=== PATIENT | female | born 1970 | race Caucasian/White ===

== ENCOUNTER 2020-03-29 06:44 | Day surgery (SDC) | payer MEDICAID, SELFPAY ==
[2020-03-29 07:05] VITALS: BP 190/115; PULSE 82; RESP 18; TEMP 36.3; O2SAT 97
--- NOTE | 2020-03-29 07:10 | P.ANESASSM_ITS ---
Pre-Anesthetic Assessment Pre-Anesthetic Assessment: Height/Weight: Height 1.63 m Weight 121.109 kg Temp Pulse Resp BP Pulse Ox 97.4 F L 82 18 190/115 97 03/29/20 07:05 03/29/20 07:05 03/29/20 07:05 03/29/20 07:05 03/29/20 07:05 Preop Diagnosis: Chronic GERD and screening colonoscopy Proposed Procedure: Operation Date: 03/29/20 07:30 Proposed Procedures p EGD 85489 K21.9(Not Applicable) - Alfredito Hawk MD s Colonoscopy 49595 Z12.11(Not Applicable) - Alfredito Hawk MD Was Beta Huber taken within 24 hours: N/A Last intake: Intake Last Liquid Date 03/28/20 Last Liquid Time 22:00 Last Solid Date 03/27/20 Social: Social History: No alcohol and No tobacco Exam: Pre-Anes Outpt Exam: alert, oriented x 3, clear to auscultation bilaterally and regular rate & rhythm Airway: Submandibular: WNL Cervical ROM: WNL MP: 2 Dentition: Full History/ROS: No significant history except as noted and No significant complaints Pulmonary: Pulmonary: Sleep apnea (cpap) CV/HEM: CV/HEM: Angina (Stable) (anxiety related, stress negative 2 yr ago) and HTN : : None reported Hepatic: Hepatic: None reported GI: GI: GERD Metabolic: Metabolic: Morbid obesity and Thyroid Musc/skel: Musc/skel: Fibromyalgia and OA/DJD Neuropsych: Neuropsych: Anxiety Anesthetic Plan: ASA status: 3 Anesthesia: General and MAC PFSH Anesthesia PFSH: Medical History (Updated 03/23/20 @ 12:45 by Alfredito Hawk MD) Allergy to alpha-gal Depression Hyperlipidemia Hypertension Obesity Surgical History History of colonoscopy History of hysterectomy History of laparoscopic cholecystectomy History of tonsillectomy Family History Denies family history of Anesthesia complication Bleeding disorder Social History Smoking and tobacco status: never smoked Second hand smoke exposure: No Alcohol intake: never Adopted: No Caregiver/support person: Yes Lives independently: Yes Household members: spouse Housing: House Marital status: service: No Current occupational status: retired Current occupational exposures/hazards: No Pets and animals: No History of recent travel: No Sexually active: No Current gender identity: Female Ary/Mormonism: Rastafarian Special ary needs: No Agree to transfusion: No Financial difficulty paying for basics: Decline to Answer Data Anesthesia Cardiac Studies: No Data to Display
[2020-03-29] MEDS: sodium chloride 0.9% 1,000 ML 30 ML IV (07:11)
--- NOTE | 2020-03-29 07:17 | W.PM.OPSUD ---
Surgery/Procedure H&P Update DATE OF PROCEDURE: March 29, 2020 DATE H&P PERFORMED: 01/20/20 H&P UPDATE INFORMATION: I have reviewed H&P completed within last 30 days, I have examined patient prior to procedure and Changes to prior documentation as noted here (Patient reported that she did not have a colonoscopy back in 1994 but was a barium enema) PREOP DIAGNOSIS: Chronic GERD and screening colonoscopy PRIMARY INDICATION FOR PROCEDURE: The same PLANNED PROCEDURE: Operation Date: 03/29/20 07:30 Proposed Procedures p EGD 81232 K21.9(Not Applicable) - Alfredito Hawk MD s Colonoscopy 67014 Z12.11(Not Applicable) - Alfredito Hawk MD
[2020-03-29 07:50] VITALS: BP 143/98; PULSE 75; RESP 16; TEMP 36.5; O2SAT 98
--- NOTE | 2020-03-29 08:03 | W.PM.OPSFHP ---
Same Day Surgery H&P Indication for Procedure/HPI DATE OF PROCEDURE: March 29, 2020 CHIEF COMPLAINT/INDICATIONFOR SURGICAL PROCEDURE: Obesity PREOP DIAGNOSIS: Chronic GERD and screening colonoscopy PLANNED PROCEDRUE: Operation Date: 03/29/20 07:30 Proposed Procedures p EGD 25441 K21.9(Not Applicable) - Alfredito Hawk MD s Colonoscopy 88302 Z12.11(Not Applicable) - Alfredito Hawk MD This is a pleasant 49 years old female patient morbidly obese with associated multiple medical comorbidities including alpha gal allergy, hypertension, bilateral knee pain, hypothyroidism, questionable history of hiatal hernia,elevated liver function tests and an anxiety. Patient comes today as she is concerned about her morbid obesity which is interfering with her daily life activities and she is referred for further evaluation and potential discussion of different obesity management options including Bariatric surgery. Patient also have chronic GERD and she is also due for screening colonoscopy. She reports today that she had an antibiotic test for H. pylori that was tested positive and was placed on triple therapy ROS All systems have been reviewed negative except as for the above or per problem list Medications/Allergies* Home Medications Medication Instructions Recorded Confirmed Type buspirone 5 mg tablet 5 mg PO TID 01/20/20 03/29/20 History cyclobenzaprine 10 mg tablet 10 mg PO BID tab 01/20/20 03/29/20 History diphenhydramine HCl 25 mg capsule 25 mg PO TID PRN 01/20/20 03/29/20 History gabapentin 300 mg capsule 300 mg PO DAILY 01/20/20 03/29/20 History levothyroxine 50 mcg capsule 50 mcg PO DAILY 01/20/20 03/29/20 History losartan 50 mg tablet 50 mg PO DAILY 01/20/20 03/29/20 History meclizine 25 mg tablet 25 mg PO TID PRN MDD 3 01/20/20 03/29/20 History montelukast 10 mg tablet 10 mg PO DAILY 01/20/20 03/29/20 History nitroglycerin 0.4 mg sublingual 0.4 mg SUBLINGUAL Q5M PRN 01/20/20 03/29/20 History tablet spironolactone 25 mg tablet 25 mg PO DAILY 01/20/20 03/29/20 History Allergies/Adverse Reactions Allergy/AdvReac Type Severity Reaction Status Date / Time alpha-gal Allergy ALGY-Anaphy Uncoded 03/29/20 08:05 laxis Current Medications: Generic Name Dose Route Start Last Admin Trade Name Bruce PRN Reason Stop Dose Admin Sodium Chloride 1,000 mls @ 30 mls/hr 03/29/20 07:00 03/29/20 07:11 Sodium Chloride 0.9% IV 30 mls/hr .Q24H YAKELIN Administration Pertinent History/Comorbid Conditions* Medical History (Updated 03/29/20 @ 07:48 by Alfredito Hawk MD) Allergy to alpha-gal Depression Hyperlipidemia Hypertension Obesity Surgical History (Updated 01/20/20 @ 16:28 by Alfredito Hawk MD) History of colonoscopy History of hysterectomy History of laparoscopic cholecystectomy History of tonsillectomy Family History (Updated 01/20/20 @ 11:34 by Courtney Matta RN) Denies family history of Anesthesia complication Bleeding disorder Social History Smoking and tobacco status: never smoked Second hand smoke exposure: No Alcohol intake: never Adopted: No Caregiver/support person: Yes Lives independently: Yes Household members: spouse Housing: House Marital status: service: No Current occupational status: retired Current occupational exposures/hazards: No Pets and animals: No History of recent travel: No Sexually active: No Current gender identity: Female Ary/Episcopal: Nondenominational Special ary needs: No Agree to transfusion: No Financial difficulty paying for basics: Decline to Answer Pertinent Exam Findings alert, oriented x 3, clear to auscultation bilaterally, regular rate & rhythm and procedure specific exam findings (Abdominal examination nontender nondistended soft/morbidly obese) Recommendations Surgery/Procedure today (EGD and colonoscopy/informed consent per chart) Coding Level of Care Code Acute Office Lead for Tabitha Reid
[2020-03-29 08:06] VITALS: BP 130/81; PULSE 65; RESP 16; O2SAT 95
[2020-03-29 08:11] VITALS: BP 144/95; PULSE 69; RESP 16; O2SAT 97
--- NOTE | 2020-03-29 08:38 | ANE.PACU2 ---
Inpatient post-anesthesia follow up: Airway intact: Yes Vital signs: Temperature 97.7 F Pulse Rate 69 Respiratory Rate 16 Blood Pressure 144/95 Pulse Oximetry 97 Oxygen Delivery Me thod Room Air Oxygen Flow Rate Fraction of Inspir ed Oxygen Hydration adequate: Yes Nausea and vomiting: No Mental status: Baseline
[2020-03-31 10:32] LABS: H. Pylori / CLO Test Negative
== END 2020-03-29 08:20 | disposition home or self-care (01) ==
PROVIDERS: PCP Registered Nurse; Visit Provider Surgery
PROC: 0DJ08ZZ Inspection of Upper Intestinal Tract, Via Natural or Artificial Opening Endoscopic (ICD-10-PCS; CPT 43235; principal; 2020-03-29 07:30)
PROC: 0DJD8ZZ Inspection of Lower Intestinal Tract, Via Natural or Artificial Opening Endoscopic (ICD-10-PCS; CPT 45378; 2020-03-29 07:30)
DX: Z12.11 Encounter for screening for malignant neoplasm of colon (principal); K21.9 Gastro-esophageal reflux disease without esophagitis; D12.2 Benign neoplasm of ascending colon; E66.01 Morbid (severe) obesity due to excess calories; Z68.42 Body mass index [BMI] 45.0-49.9, adult; K29.70 Gastritis, unspecified, without bleeding; G47.30 Sleep apnea, unspecified; M79.7 Fibromyalgia; M19.90 Unspecified osteoarthritis, unspecified site; F41.9 Anxiety disorder, unspecified; E78.5 Hyperlipidemia, unspecified
CPT/HCPCS: 12345; 43239; 45385; 87077; J2704; J3490; J7030

== ENCOUNTER 2021-03-05 23:03 | Emergency (ER) | payer MEDICAID, SELFPAY ==
[2021-03-05 23:19] VITALS: BP 89/57; PULSE 65; RESP 15; TEMP 36.3; O2SAT 96; BMI 43.6
--- NOTE | 2021-03-05 23:30 | XRR_ITS ---
PROCEDURE INFORMATION: Exam: XR Chest Exam date and time: 03/05/2021 11:51 PM Age: 50 years old Clinical indication: Other: Low blood pressure; Additional info: Dizzy, low blood pressure TECHNIQUE: Imaging protocol: XR of the chest. Views: 1 view. COMPARISON: CR Chest 1 [place] [id number] 08/28/2014 7:53 PM FINDINGS: Lungs: Visualized portions of the lungs are clear. Pleural spaces: Unremarkable. No pleural effusion. No pneumothorax. Heart/Mediastinum: Heart is within normal limits of size. Bones/joints: Unremarkable. XR/XR chest 1V portable [id number] IMPRESSION: No acute infiltrates.
--- NOTE | 2021-03-05 23:30 | ECG_ITS ---
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 Measurements Intervals [place]on Rate: 60 P: 29 NV: 173 QRS: 23 QRSD: 107 T: 2 QT: 459 QTc: 459 Interpretive Statements SINUS RHYTHM LOW QRS VOLTAGE IN PRECORDIAL LEADS [QRS DEFLECTION < 1.0 mV IN CHEST LEADS] No previous ECG available for comparison Electronically Signed On 03-06-2021 19:21:16 CDT by Harish Jeff M.D. [email or web address]
--- NOTE | 2021-03-05 23:34 | ED_ITS ---
HPI - Dizziness General: Chief Complaint: Dizziness Stated Complaint: LOW BP ISSUES Time Seen by Provider: 03/05/21 23:29 Source: patient Mode of arrival: ambulatory Limitations: no limitations History of Present Illness: HPI Narrative: 50-year-old female who states that tonight roughly 1 to 2 hours ago she started to feel lightheaded and felt she may pass out. She states she took her blood pressure at home and was in the 70s. Her original blood pressure here was in the 80s. Now in the room her blood pressure is 123 and she does feel improved. Patient does take Zanaflex for chronic neck pain and is on hydralazine 3 times a day along with amlodipine. She denies any pain anywhere. Denies any slurred speech. She has had no difficulty walking. Associated symptoms: Denies chest pain, chills, nausea or vomiting Review of Systems Const: Denies: fever(s), chills, body aches or change in appetite Eyes: Denies: blurry vision or eye discomfort ENMT: Denies: throat pain or dental pain Card: Denies: chest pain Resp: Denies: dyspnea GI: Denies: abdominal pain, nausea, vomiting or diarrhea : Denies: dysuria Musc: Denies: neck pain or back pain Skin/Breast: Denies: rash Neuro: Reports: weakness in extremities and dizziness Psych: Denies: depression Andrei/Lymph: Denies: easy bruising All/Imm: Denies: urticaria PFSH ED PFSH: Medical History (Updated 03/06/21 @ 00:31 by Heri Faust MD) Allergy to alpha-gal Depression Hyperlipidemia Hypertension Obesity Venous stasis Surgical History History of colonoscopy History of colonoscopy with polypectomy (~03/2020) History of esophagogastroduodenoscopy (EGD) (~03/2020) History of hysterectomy History of laparoscopic cholecystectomy History of tonsillectomy Family History Denies family history of Anesthesia complication Bleeding disorder Social History Smoking and tobacco status: never smoked Second hand smoke exposure: No Alcohol intake: never Adopted: No Caregiver/support person: Yes Lives independently: Yes Household members: spouse Housing: House Marital status: service: No Current occupational status: retired Current occupational exposures/hazards: No Pets and animals: No History of recent travel: No Sexually active: No Current gender identity: Female Ary/Anglican: Anabaptist Special ary needs: No Agree to transfusion: No Financial difficulty paying for basics: Decline to Answer Physical Exam Const: COMMON NORMALS: no acute distress, patient oriented x3 and healthy appearing HENMT: COMMON NORMALS: normocephalic and atraumatic HEAD & SCALP: normocephalic and atraumatic Eye: COMMON NORMALS: Equal, round and reactive pupils present and EOMs intact bilaterally PUPIL: Yes Equal, round and reactive pupils present Neck/C-Spine: COMMON NORMALS: full ROM and supple Chest: COMMONS NORMALS: normal inspection of the chest and normal palpation of entire chest wall Resp: COMMON NORMALS: normal respiratory effort, No retractions, No use of accessory muscles and clear to auscultation bilaterally AUSCULTATION: clear to auscultation bilaterally Cardio: COMMON NORMALS: regular rate, regular rhythm and No murmurs present (Cardio) RATE: regular rate RHYTHM: regular rhythm GI: COMMON NORMALS: Normal to inspection, nondistended, normoactive bowel sounds present, Soft to palpation, non-tender and no masses PALPATION: Yes Soft to palpation Extremity: COMMON NORMALS: normal to inspection and full ROM Neuro: COMMON NORMALS: patient oriented x3, moves all extremities and no focal motor deficits Psych: COMMON NORMALS: mental status grossly normal, Normal thought process present and cooperative THOUGHT PROCESS: Normal thought process present Skin: COMMON NORMALS: no rashes or lesions noted and no wounds GENERAL SKIN EXAM: no rashes or lesions noted Course Vital Signs: Vital signs: Vital Signs Temperature 97.4 F L 03/05/21 23:19 Pulse Rate 70 03/06/21 00:29 Respiratory Rate 17 03/05/21 23:55 Blood Pressure 126/73 03/06/21 00:29 Pulse Oximetry 96 03/05/21 23:55 MDM - Dizziness MDM Narrative: Medical decision making narrative: Patient presents here with lightheadedness and hypotension. This is likely due to overmedication. We will decrease her hydralazine cut it in half. Her blood pressure here is stabilized and her blood work is all normal. She has no signs of infection or sepsis. She feels improved here as well. She is stable for discharge and is to make her medication adjustments and return if worsening. She is to follow-up with PCP in 1 week. Lab Data: Labs: Lab Results 03/05/21 03/05/21 03/05/21 Range/Units 23:55 23:55 23:55 WBC 11.6 H (4.0-10.0) 10^3/ uL RBC 4.32 (4.1-5.3) 10^6/u L Hgb 12.2 (11.5-15.3) g/dL Hct 38.9 (37.0-47.0) % MCV 90.0 (81-99) fL MCH 28.2 (28.0-34.0) pg MCHC 31.4 (30.0-36.0) g/dL RDW 14.2 (12.1-15.1) % Plt Count 282 (130-400) 10^3/c mm MPV 11.1 H (7.4-10.4) fL Neut % (Auto) 71.4 % Lymph % (Auto) 18.9 % [place] % (Auto) 7.5 % Eos % (Auto) 1.0 % Baso % (Auto) 0.6 % Neut # (Auto) 8.29 H (1.8-7.7) 10^3/u L Lymph # (Auto) 2.2 (0.8-4.8) 10^3/u L [place] # (Auto) 0.9 (0.2-0.9) 10^3/u L Eos # (Auto) 0.1 (0.0-0.8) 10^3/u L Baso # (Auto) 0.1 (0.0-0.1) 10^3/u L Nucleated RBC % (a uto) 0 % Nucleated RBCs # 0.0 /100WBC Sodium 139 (136-145) mmol/L Potassium 3.8 (3.5-5.1) mmol/L Chloride 104 (98-107) mmol/L Carbon Dioxide 24 (22-29) mmol/L Anion Gap 14.8 (5-19) BUN 16 (6-20) mg/dL Creatinine 1.0 H (0.5-0.9) mg/dL GFR Calculation 58.9 L (90-130) mL/min Glucose 160 H (65-115) mg/dL Calculated Osmolal ity 293 (285-295) mOsm/k g Lactate 1.6 (0.5-2.2) mmol/L Calcium 8.5 (8.5-10.5) mg/dL Total Bilirubin 0.3 (0.15-1.2) mg/dL AST 15 (0-32) U/L ALT 8 (0-33) U/L Alkaline Phosphata se 82 (35-105) IU/L Total Protein 6.4 L (6.6-8.7) g/dL Albumin 3.8 (3.5-5.2) g/dL Globulin 2.6 (1.3-4.6) g/dL Imaging Data^: CXR: Attestation: I personally reviewed and interpreted this imaging study as follows: Radiologist's impression: No acute normality EKG Data^: EKG 1: Attestation: I personally reviewed and interpreted this EKG as follows: EKG interpretation date: 03/05/21 EKG interpretation time: 23:39 Interpretation: nsr hr [address] or t wave abnormalities qrs 107 qtc 459 Discharge Plan Discharge Patient Disposition: Home Clinical Impression: Lightheadedness Hypotension Qualifiers: Hypotension type: unspecified hypotension type Qualified Code(s): I95.9 - Hypotension, unspecified Condition: Stable Prescriptions: Changed hydralazine 100 mg tablet 50 mg PO TID Qty: 90 RF: 6 No Action levothyroxine 50 mcg capsule 50 mcg PO DAILY RF: 0 cyclobenzaprine 10 mg tablet 10 mg PO BID RF: 0 montelukast 10 mg tablet 10 mg PO DAILY RF: 0 gabapentin 300 mg capsule 300 mg PO DAILY RF: 0 meclizine 25 mg tablet 25 mg PO TID MDD 3 PRN (Reason: Chest Pain) RF: 0 buspirone 5 mg tablet 5 mg PO TID RF: 0 diphenhydramine HCl [Benadryl] 25 mg capsule 25 mg PO TID PRN (Reason: Pain) RF: 0 losartan 100 mg tablet 100 mg PO DAILY Qty: 90 RF: 4 amlodipine 10 mg tablet 10 mg PO DAILY Qty: 90 RF: 3 nitroglycerin 0.4 mg tablet, sublingual 0.4 mg sublingual Q5M PRN (Reason: chest pain) Qty: 25 RF: 2 pantoprazole 40 mg tablet,delayed release (DR/EC) See Rx Instructions .ROUTE .COMPLEX Qty: 30 RF: 2 Discharge Orders: Discharge ED (Routine); Ordered 03/06/21 Ordered By: Heri Faust Referrals: Francoise Magana FNP [Primary Care Provider] - Discharge Diet: Advance as tolerated Discharge Activity: Resume usual activity Patient Instructions: Near Syncope (ED) Coding Level of Care Code ED Drafter Tool Design for Adisg Fwd Exam Comprehensive
[2021-03-05] MEDS: sodium chloride 0.9% 1,000 ML 999 ML IV (23:49)
[2021-03-05 23:55] VITALS: BP 123/62; PULSE 57; RESP 17; O2SAT 96
[2021-03-05 23:59] LABS: Basophils # 0.1 10^3/uL (0.0-0.1); Basophils % 0.6 %; Eosinophils # 0.1 10^3/uL (0.0-0.8); Hematocrit 38.9 % (37.0-47.0); Hemoglobin 12.2 g/dL (11.5-15.3); Lymphocytes # 2.2 10^3/uL (0.8-4.8); Lymphocytes % 18.9 %; Mean Corpuscular HGB Conc 31.4 g/dL (30.0-36.0); Mean Corpuscular Hemoglobin 28.2 pg (28.0-34.0); Mean Platelet Volume 11.1 fL (7.4-10.4); Monocytes # 0.9 10^3/uL (0.2-0.9); Monocytes % 7.5 %; Neutrophils # 8.29 10^3/uL (1.8-7.7); Neutrophils % 71.4 %; Nucleated Red Blood Cells % 0 %; Platelet Count 282 10^3/cmm (130-400); Red Blood Count 4.32 10^6/uL (4.1-5.3); Red Cell Distribution Width 14.2 % (12.1-15.1); White Blood Count 11.6 10^3/uL (4.0-10.0)
[2021-03-06 00:14] LABS: Alanine Aminotransferase 8 U/L (0-33); Albumin Level 3.8 g/dL (3.5-5.2); Alkaline Phosphatase 82 IU/L (35-105); Anion Gap 14.8 (5-19); Aspartate Amino Transferase 15 U/L (0-32); Blood Urea Nitrogen 16 mg/dL (6-20); Calcium 8.5 mg/dL (8.5-10.5); Carbon Dioxide 24 mmol/L (22-29); Chloride 104 mmol/L (98-107); Globulin 2.6 g/dL (1.3-4.6); Glomerular Filtration Rate 58.9 mL/min (90-130); Glucose 160 mg/dL (65-115); Osmolality Calculated 293 mOsm/kg (285-295); Potassium 3.8 mmol/L (3.5-5.1); Sodium 139 mmol/L (136-145); Total Bilirubin 0.3 mg/dL (0.15-1.2); Total Protein 6.4 g/dL (6.6-8.7)
[2021-03-06 00:15] LABS: Lactate (Lactic Acid level) 1.6 mmol/L (0.5-2.2)
[2021-03-06 00:28] VITALS: BP 115/61; PULSE 60
[2021-03-06 00:29] VITALS: BP 122/71; BP 126/73; PULSE 62; PULSE 70
--- NOTE | 2021-03-06 00:29 | PC.NURSE ---
Orthos completed and charted. Pt c/o dizziness with standing. Physician notified.
[2021-03-06] MEDS: sodium chloride 0.9% 1,000 ML 999 ML IV (00:48)
[2021-03-06 01:40] VITALS: BP 130/67; PULSE 56; RESP 18; O2SAT 97
== END 2021-03-06 01:42 | disposition home or self-care (01) ==
PROVIDERS: Emergency Provider Emergency Medicine; PCP Registered Nurse
DX: R42 Dizziness and giddiness (principal); I95.9 Hypotension, unspecified; E78.5 Hyperlipidemia, unspecified; I10 Essential (primary) hypertension
CPT/HCPCS: 71045; 80053; 83605; 85025; 93005; 96360; 96361; 99284; J7030

== ENCOUNTER 2022-07-30 09:27 | Outpatient (CLI) | payer MEDICAID, SELFPAY ==
--- NOTE | 2022-07-30 09:30 | USCV_ITS ---
Scott Naheed Age: 52 Gender: F : 1970 Exam Date: 07/30/2022 09:40 Ordering Phys: Marcellus Otto M.D ([email or web address]) Technologist: David Jose [place] [facility] [place]: H[place]ORY: PROCEDURES: Bilateral duplex Venous Insufficiency study of the Deep and Superficial systems was carried out according to normal protocol with the patient in supine positon for deep system and dependent position for the superficial system. FINDINGS: All deep veins demonstrated compressibility without evidence of intraluminal thrombus or increased echogenicity. Spectral analysis of Doppler signals demonstrates normal response to compression maneuvers indicating patency without obstruction. Reflux determinations were made with the patient in the dependent position, the weight being on the contralateral leg. significant reflux bilat. CONCLUSIONS 1. No evidence of deep vein thrombosis in the above-mentioned identifiable veins. 2. On the right side, there is no significant deep vein reflux. Significant a superficial vein reflux were noted(greater than 500 ms) ID mid and below-knee greater saphenous vein segments. These venous segments where 0.58 cm and 0.67 cm in diameter and at a depth of greater than 1 cm from the surface. 3. On the left side, no significant or deep vein reflux. Significant superficial vein reflux of greater than 500 ms was noted at the saphenofemoral junction. No other significant reflux were noted No similar previous studies are available for comparison Dr Harish Jeff MD [facility] (Electronically Signed) Final Date: 30 July 2022 20:10 S
== END 2022-07-30 09:28 | disposition home or self-care (01) ==
LOC: RAD 09:28
PROVIDERS: PCP Registered Nurse; Visit Provider Internal Medicine
DX: M79.89 Other specified soft tissue disorders (principal)
CPT/HCPCS: 93970

== ENCOUNTER → 2022-11-18 14:48 | Outpatient (BNVA) | payer MEDICAID, SELFPAY | PROVIDERS: PCP Registered Nurse; Visit Provider Internal Medicine | DX: I10 Essential (primary) hypertension (principal); E66.9 Obesity, unspecified; Z68.41 Body mass index [BMI] 40.0-44.9, adult | CPT/HCPCS: 99214 ==

== ENCOUNTER → 2023-05-21 15:15 | Outpatient (BNVA) | payer MEDICAID, SELFPAY | PROVIDERS: PCP Registered Nurse; Visit Provider Internal Medicine | DX: I10 Essential (primary) hypertension (principal); M79.89 Other specified soft tissue disorders; E66.9 Obesity, unspecified; Z68.42 Body mass index [BMI] 45.0-49.9, adult; I87.2 Venous insufficiency (chronic) (peripheral); R07.9 Chest pain, unspecified | CPT/HCPCS: 99214 ==

== ENCOUNTER 2023-05-28 06:04 | Outpatient (CLI) | payer MEDICAID, SELFPAY ==
--- NOTE | 2023-05-28 06:15 | USCV_ITS ---
Naheed Chavez Age: 53 Gender: F : 1970 Exam Date: 05/28/2023 06:19 Ordering Phys: Marcellus Otto M.D ([email or web address]) Technologist: KRIS Exam Location: [facility] [place] Indication: Leg Swelling HISTORY: Lower extremity swelling. PROCEDURES: Venous duplex imaging was performed in only the right lower extremity. The following venous structures were evaluated: common femoral vein, profunda vein, proximal portion of the greater saphenous vein, superficial femoral vein, and the popliteal vein. In addition, the posterior tibial and peroneal trunk were evaluated. Serial compression, augmentation maneuvers, and spectral Doppler flow evaluation were performed. FINDINGS: Normal 2-D Doppler and augmentation and compressibility throughout the lower extremity venous structures. Additional imaging through the proximal calf veins also reveals no thrombus. Limited evaluation of the greater saphenous vein is patent with no thrombus. CONCLUSIONS No DVT right lower extremity. Technically difficult exam. Dr. Chani Lee DO (Electronically Signed) Final Date: 28 May 2023 06:37 S
== END 2023-05-28 06:05 | disposition home or self-care (01) ==
PROVIDERS: PCP Registered Nurse; Visit Provider Internal Medicine
DX: M79.89 Other specified soft tissue disorders (principal)
CPT/HCPCS: 93971

== ENCOUNTER → 2023-11-20 13:50 | Outpatient (BNVA) | payer MEDICARE, MEDICAID, SELFPAY | PROVIDERS: PCP Registered Nurse; Visit Provider Internal Medicine | DX: I10 Essential (primary) hypertension (principal); E66.9 Obesity, unspecified; Z68.41 Body mass index [BMI] 40.0-44.9, adult; I87.2 Venous insufficiency (chronic) (peripheral) | CPT/HCPCS: 99214 ==

== ENCOUNTER → 2024-07-15 09:56 | Outpatient (BNVA) | payer MEDICARE, MEDICAID, SELFPAY | PROVIDERS: PCP Registered Nurse; Visit Provider Internal Medicine | DX: I87.2 Venous insufficiency (chronic) (peripheral) (principal); I10 Essential (primary) hypertension; E66.9 Obesity, unspecified; Z68.41 Body mass index [BMI] 40.0-44.9, adult | CPT/HCPCS: 99214 ==

== ENCOUNTER → 2025-05-02 13:25 | Outpatient (BNVA) | payer MEDICARE, SELFPAY | PROVIDERS: PCP Registered Nurse; Visit Provider Internal Medicine | DX: R00.2 Palpitations (principal); R07.89 Other chest pain; I10 Essential (primary) hypertension; E66.9 Obesity, unspecified; Z68.41 Body mass index [BMI] 40.0-44.9, adult; R01.1 Cardiac murmur, unspecified; I87.2 Venous insufficiency (chronic) (peripheral) | CPT/HCPCS: 99214 ==

== ENCOUNTER 2025-06-02 08:21 | Outpatient (CLI) | payer MEDICARE, SELFPAY ==
--- NOTE | 2025-06-02 08:30 | USCV_ITS ---
Scott Naheed Age: 55 Gender: F : 1970 Exam Date: 06/02/2025 08:45 Ordering Phys: Marcellus Otto M.D ([email or web address]) Technologist: Exam Location: [facility] – [place] Indication: sob cp BP: 180 / 90 HR: 72 Rhythm: Sinus Technical Quality: Adequate MEASUREMENTS (Male / Female) Normal Values 2D ECHO LV Diastolic Diameter PLAX 5.3 cm 4.2 - 5.9 / 3.9 - 5.3 cm IVS Diastolic Thickness 1.4 cm 0.6 - 1.0 / 0.6 - 0.9 cm IVS Systolic Thickness 1.7 cm LVPW Diastolic Thickness 1.2 cm 0.6 - 1.0 / 0.6 - 0.9 cm LVPW Systolic Thickness 1.8 cm LVOT Diameter 2.0 cm LV Ejection Fraction 2D Teich 69.5 % LV Ejection Fraction MOD 4C 72.4 % LV Ejection Fraction MOD 2C 65.0 % LV Ejection Fraction 2C AL 64.4 % LA Diameter 2.7 cm RA Systolic Volume 4C AL 29.2 ml RA Systolic Volume 4C MOD 27.8 ml LA Sys Volume AL 37.8 cm cubed LA Sys Volume Index AL 16.7 cm cubed/m squared Aorta at Sinotubular Diameter 3.3 cm IVC Diameter 1.7 cm M-MODE LA Ao Ratio MM 1.0 AV Cusp Separation MM 2.6 cm DOPPLER AV Peak Velocity 171.0 cm/s AV Area Cont Eq vti 2.7 cm squared AV Area Cont Eq pk 2.5 cm squared MV Peak Velocity 105.0 cm/s MV Area PHT 4.6 cm squared Mitral E to A Ratio 1.0 TV Peak Velocity 211.0 cm/s TR Peak Velocity 212.0 cm/s TR Peak Gradient 18.0 mmHg TV Peak E Velocity 96.0 cm/s PV Peak Velocity 98.0 cm/s FINDINGS Left Ventricle Left ventricle is normal in size. LV systolic function is normal with EF of 60-65%. No regional wall motion abnormalities are seen. Mild left ventricular hypertrophy. Right Ventricle Normal in size and function Right Atrium Normal in size Left Atrium Normal in size Mitral Valve Structurally normal mitral valve. Trace mitral regurgitation. Aortic Valve Structurally normal aortic valve. No significant stenosis or regurgitation. Tricuspid Valve Insufficient TR jet to calculate RVSP. Pulmonic Valve Not well visualized Pericardium Normal Aorta Normal in size IVC Appears to be normal CONCLUSIONS LV systolic function is normal with EF of 60-65% Trace mitral regurgitation Marcellus Otto MD (Electronically Signed) Final Date: 08 June 2025 09:31 S
== END 2025-06-02 08:22 | disposition home or self-care (01) ==
LOC: RAD 08:22
PROVIDERS: PCP Registered Nurse; Visit Provider Internal Medicine
DX: R01.1 Cardiac murmur, unspecified (principal); I36.1 Nonrheumatic tricuspid (valve) insufficiency; I51.7 Cardiomegaly
CPT/HCPCS: 93306